=== PATIENT | female | born 2005 | race Caucasian/White ===

== ENCOUNTER 2023-11-12 16:41 | Observation (INO) ==
[2023-11-12] MEDS: Ondansetron 4 mg VIAL 2 MG/ML 2 ml VIAL IV ONE (18:29)
[2023-11-12] MEDS: Pantoprazole VIAL 40 MG VIAL IV ONE (18:29)
[2023-11-12] MEDS: NS 0.9% 1000 ml BAG 1,000 ML IV ONE ×2 (18:29→19:40)
[2023-11-12 18:55] LABS: Urine Appearance Clear; Urine Bilirubin Negative (Negative); Urine Blood Negative (Negative); Urine Color Light-Yellow; Urine Glucose Negative (Negative); Urine Ketones Negative (Negative); Urine Nitrite Negative (Negative); Urine Protein Negative (Negative); Urine Urobilinogen Negative (Negative)
[2023-11-12 19:04] LABS: ABS Basophils 0.1 10^3/uL (0.0-0.1); ABS Lymphocytes 1.1 10^3/uL (1.0-4.8); ABS Monocytes 0.5 10^3/uL (0.0-0.9); ABS Neutrophils 7.9 10^3/uL (1.5-7.6); Eosinophil % 0.1 %; Hematocrit 35.1 % (35-45); Hemoglobin 11.7 g/dL (11.5-14.3); Lymphocyte % 11.3 %; Mean Corpuscular Hemoglobin 27.3 pg (27-33); Mean Corpuscular Hgb Conc 33.3 g/dL (31-36); Mean Corpuscular Volume 82.1 fL (80-97); Mean Platelet Volume 8.4 fL (7.5-11.2); Platelet Count 334 10^3/uL (150-450); Red Blood Count 4.28 10^6/uL (3.63-4.92); Red Cell Distribution Width 14.4 % (12-17); White Blood Count 9.6 10^3/uL (3.8-11.8)
[2023-11-12 19:55] LABS: Magnesium 1.8 mg/dL (1.9-2.7)
[2023-11-12 19:56] LABS: HCG Pregnancy < 0.60 mIU/mL
[2023-11-12 19:57] LABS: ALT 11 U/L (7-52); AST 11 U/L (13-39); Albumin 4.8 g/dL (3.2-5.2); Albumin/Globulin Ratio 1.9 (1-3); Alkaline Phosphatase 64 U/L (35-149); Anion Gap 8 mmol/L (2-16); Blood Urea Nitrogen 11 mg/dL (6-24); C Reactive Protein < 1.00 mg/L (<8.01); CO2 Carbon Dioxide 22 mmol/L (22-32); Calcium 9.5 mg/dL (8.6-10.3); Chloride 105 mmol/L (101-111); Creatinine, Serum 0.75 mg/dL (0.51-0.95); Globulin 2.5 g/dL (2-4); Glucose 92 mg/dL (70-100); Lipase 25 U/L (11.0-82.0); Potassium 4.3 mmol/L (3.5-5.0); Sodium 135 mmol/L (135-145); Total Bilirubin 0.5 mg/dL (0.2-1.0); Total Protein 7.3 g/dL (6.4-8.9); eGFR CKD-EPI 116.8 (>60)
[2023-11-12] MEDS: Al Hydrox/Mg Hydrox/Simet LIQ 30 ML UDC PO ONE (20:04)
[2023-11-12] MEDS: Iohexol 350 (CONTRAST) 500 ML MDV IV ONE (20:46)
[2023-11-12] MEDS: Pantoprazole 80 mg in NS BAG 80 MG/250 ML BAG IV ONE (23:30)
[2023-11-13 00:10] LABS: Hematocrit 30.2 % (35-45); Hemoglobin 10.3 g/dL (11.5-14.3)
[2023-11-13 01:53] LABS: TSH Ultra Thyroid Stim Horm 1.03 mcIU/mL (0.34-5.60)
[2023-11-13] MEDS: Magnesium Sulfate 2 gm BAG 2 GM/50 ML BAG IVPB ONE (01:59)
[2023-11-13 02:00] LABS: Ferritin 6.3 ng/mL (11-307)
[2023-11-13 02:04] LABS: Folate 9.17 ng/mL (5.90-24.80)
[2023-11-13 05:34] LABS: ABS Basophils 0.1 10^3/uL (0.0-0.1); ABS Eosinophils 0.1 10^3/uL (0.0-0.5); ABS Lymphocytes 1.9 10^3/uL (1.0-4.8); ABS Monocytes 0.6 10^3/uL (0.0-0.9); ABS Neutrophils 5.4 10^3/uL (1.5-7.6); Eosinophil % 0.8 %; Hematocrit 31.8 % (35-45); Hemoglobin 10.7 g/dL (11.5-14.3); Lymphocyte % 24.1 %; Mean Corpuscular Hgb Conc 33.6 g/dL (31-36); Mean Corpuscular Volume 83.5 fL (80-97); Mean Platelet Volume 8.2 fL (7.5-11.2); Nucleated Red Blood Cells % 0.1 %/100WBC (0.0-0.8); Platelet Count 240 10^3/uL (150-450); Red Cell Distribution Width 14.2 % (12-17); White Blood Count 8.1 10^3/uL (3.8-11.8)
[2023-11-13 06:10] LABS: Calcium 8.7 mg/dL (8.6-10.3); Creatinine, Serum 0.79 mg/dL (0.51-0.95); Magnesium 2.2 mg/dL (1.9-2.7); Potassium 4.1 mmol/L (3.5-5.0); eGFR CKD-EPI 109.8 (>60)
[2023-11-13] MEDS ORDERED: Pantoprazole VIAL 40 MG VIAL IV SCH (09:00)
[2023-11-13] MEDS: Pantoprazole VIAL 40 MG VIAL IV SCH (12:03)
[2023-11-13] MEDS: Ferric Gluconate IV 250 MG in NS 0.9% 250 ml 200 ML IVPB SCH (12:04)
[2023-11-13] MEDS ORDERED: Ondansetron 4 mg VIAL 2 MG/ML 2 ml VIAL IV PRN (14:56)
[2023-11-13] MEDS ORDERED: fentaNYL 100 mcg/2 ml 50 MCG/ML VIAL IV PRN (14:56)
[2023-11-13] MEDS ORDERED: Naloxone 0.4 mg VIAL 0.4 mg/ml 1 ml VIAL IV PRN (14:56)
[2023-11-13] MEDS ORDERED: NS 0.45% 1000 ml BAG 1,000 ML IV SCH (15:00)
[2023-11-13] MEDS ORDERED: Lidocaine 2% PF 5 ML VIAL ONE (15:42)
[2023-11-13] MEDS ORDERED: Midazolam 2 mg/2 ml VIAL 1 mg/ml 2 ml VIAL (2 mg) ONE (15:42)
[2023-11-13] MEDS ORDERED: Propofol 10 MG/ML 20 ML BTL ONE (15:42)
[2023-11-13] MEDS ORDERED: fentaNYL 100 mcg/2 ml 50 MCG/ML VIAL ONE (15:44)
[2023-11-13 17:25] LABS: Hematocrit 33.8 % (35-45); Hemoglobin 11.3 g/dL (11.5-14.3)
[2023-11-13] MEDS: Acetaminophen IV 1 GM/100ML 1,000 MG/100 ML BAG IV ONE (17:41)
[2023-11-13] MEDS: Scopolamine 1 mg/72hr PATCH TRANSDERM ONE (17:42)
[2023-11-13] MEDS: Buffered Lidocaine 1% SYRIN 1 ml INTRADERM ONE (17:42)
[2023-11-13] MEDS: Lactated Ringers 1000 ml BAG 1,000 ML IV SCH (17:43)
[2023-11-13] MEDS: Ondansetron 4 mg VIAL 2 MG/ML 2 ml VIAL IV PRN (20:19)
[2023-11-14 05:55] LABS: ABS Eosinophils 0.1 10^3/uL (0.0-0.5); ABS Lymphocytes 1.6 10^3/uL (1.0-4.8); ABS Monocytes 0.6 10^3/uL (0.0-0.9); ABS Neutrophils 4.5 10^3/uL (1.5-7.6); ABS Nucleated RBC 0.01 10^3/ul; Eosinophil % 0.8 %; Hematocrit 31.9 % (35-45); Hemoglobin 10.8 g/dL (11.5-14.3); Mean Corpuscular Hemoglobin 28.1 pg (27-33); Mean Corpuscular Hgb Conc 33.8 g/dL (31-36); Mean Corpuscular Volume 83.1 fL (80-97); Mean Platelet Volume 8.5 fL (7.5-11.2); Nucleated Red Blood Cells % 0.2 %/100WBC (0.0-0.8); Platelet Count 247 10^3/uL (150-450); Red Blood Count 3.83 10^6/uL (3.63-4.92); Red Cell Distribution Width 14.1 % (12-17); White Blood Count 6.8 10^3/uL (3.8-11.8)
[2023-11-14 06:18] LABS: Creatinine, Serum 0.75 mg/dL (0.51-0.95); Magnesium 1.8 mg/dL (1.9-2.7); Potassium 3.9 mmol/L (3.5-5.0); eGFR CKD-EPI 116.8 (>60)
[2023-11-14] MEDS: Magnesium Sulfate 2 gm BAG 2 GM/50 ML BAG IVPB ONE (10:31)
[2023-11-14] MEDS: Ferric Gluconate IV 250 MG in NS 0.9% 250 ml 200 ML IVPB ONE (11:54)
[2023-11-14 13:49] VITALS: BP 123/82
== END 2023-11-14 15:50 | disposition home or self-care (01) ==
LOC: EDHOLD 16:41 → ED 16:41 → SUATTDRO 23:05 → EDHOLD 11-13 00:34 → MEDTELE 11-13 00:44
PROVIDERS: ADMIT Hospitalist; ATTEND Student in an Organized Health Care Education/Training Program
PROC: O.GIEGD (2023-11-13 11:05)